=== PATIENT | female | born 1960 | race Caucasian/White ===

== ENCOUNTER 2017-11-05 10:34 | Inpatient (IN) | payer OTHER, BC ==
[~2017-11-05] VITALS: Ht 152.4 cm; Wt 72.6 kg
[2017-11-05 11:14] LABS: BASOPHIL (%) 0.2 % (0-1); EOSINOPHIL (%) 0.5 % (0-5); EOSINOPHIL COUNT 0.1 K/uL (0-0.3); HEMATOCRIT 36.2 % (36.0-46.0); HEMOGLOBIN 12.6 G/DL (11.9-15.5); IMMATURE GRANULOCYTE (%) 0.3 % (0.0-0.7); LYMPHOCYTE (%) 10.9 % (15-42); LYMPHOCYTE COUNT 1.1 K/uL (1.0-2.8); MCH 31.4 PG (29.0-34.0); MCHC 34.8 G/DL (30.0-36.0); MCV 90.3 FL (83-99); MONOCYTE (%) 8.1 % (3-12); MONOCYTE COUNT 0.8 K/uL (0-0.8); NEUTROPHIL COUNT 8.1 K/uL (1.8-6.4); PLATELET COUNT 264 K/uL (156-360); RBC DIS.WIDTH-SD 39.8 % (39-53); RED BLOOD COUNT 4.01 M/uL (3.80-5.20); WHITE BLOOD COUNT 10.1 K/uL (4.1-10.2)
[2017-11-05 11:22] LABS: CHLORIDE 106 mEq/L (99-109); POTASSIUM 3.5 mEq/L (3.7-5.4); SODIUM 140 mEq/L (136-147)
[2017-11-05 11:23] LABS: GLUCOSE 97 mg/dL (70-99)
[2017-11-05 11:27] LABS: CREATININE 0.9 mg/dL (0.6-1.3); GFR ESTIMATE (CALCULATED) > 59 mL/min/
[2017-11-05 11:28] LABS: UREA NITROGEN (BUN) 13 mg/dL (9-23)
[2017-11-05 13:02] LABS: TROP-I INTERPRETATION NEGATIVE; TROPONIN-I < 0.01 ng/mL (0.0-0.30)
[2017-11-05 13:19] LABS: LIPASE 19 U/L (1.0-51.0)
[2017-11-05 14:49] LABS: APPEARANCE CLEAR ((CLEAR)); BILIRUBIN NEGATIVE; BLOOD SMALL; COLOR STRAW ((YELLOW)); GLUCOSE (STRIP) NEGATIVE; KETONES NEGATIVE; LEUKOCYTES TRACE; NITRITE NEGATIVE; PROTEIN (STRIP) NEGATIVE; SPECIFIC GRAVITY 1.025 (1.000-1.030); UROBILINOGEN 0.2 MG/DL (0.2-1.0)
[2017-11-05 14:51] LABS: BACTERIA NONE SEEN /HPF; EPITHELIAL CELLS RARE /HPF; MUCUS NONE SEEN /LPF; RED BLOOD CELLS 0-5 /HPF (0-5); WHITE BLOOD CELLS 0-5 /HPF (0-5)
[2017-11-05] MEDS ORDERED: OXCARBAZEPINE150 MG PO ×2 (15:12→15:13)
[2017-11-05] MEDS ORDERED: DRONABINOL5 MG PO (15:12)
[2017-11-05] MEDS ORDERED: CITALOPRAM HBR20 MG PO (15:12)
[2017-11-05] MEDS ORDERED: ACYCLOVIR800 MG PO (15:13)
[2017-11-05 17:24] VITALS: BP 125/61
[2017-11-05 20:00] VITALS: BP 97/60
[2017-11-06] VITALS: BP 102/62
[2017-11-06 04:39] VITALS: BP 86/50
[2017-11-06 07:48] VITALS: BP 100/56
[2017-11-06 11:08] VITALS: BP 110/59
[2017-11-06 15:47] VITALS: BP 100/53
[2017-11-06 20:00] VITALS: BP 102/60
[2017-11-07 00:33] VITALS: BP 91/51
[2017-11-07 03:48] VITALS: BP 92/50
[2017-11-07 09:26] VITALS: BP 142/70
[2017-11-07 11:35] VITALS: BP 102/55
[2017-11-07 15:15] VITALS: BP 103/59
[2017-11-07 23:19] VITALS: BP 92/51
[2017-11-08] VITALS (8 sets, daily range): BP systolic 85–128; BP diastolic 52–72
[2017-11-08 09:29] LABS: THYROTROPIN (TSH) 0.91 MIU/L (0.4-5.5)
[2017-11-08 12:03] LABS: CHLORIDE 105 MEQ/L (99-109); CREATININE 0.7 MG/DL (0.6-1.3); GFR ESTIMATE (CALCULATED) > 59 mL/min/; GLUCOSE 86 mg/dL (70-99); MAGNESIUM 1.7 mg/dl (1.3-2.7); POTASSIUM 3.7 MEQ/L (3.7-5.4); SODIUM 137 MEQ/L (136-147); UREA NITROGEN (BUN) 13 mg/dL (9-23)
[2017-11-08 19:37] LABS: APPEARANCE CLEAR/COLORLESS; CSF TUBE NUMBER TUBE #3; RED CELL COUNT 0 /MM^3 (0-1); WHITE CELL COUNT 0 /MM^3 (0-5)
[2017-11-08 19:38] LABS: MONONUCLEAR WBC'S ND % (50-90); POLYNUCLEAR WBC'S ND % (0-3)
[2017-11-08 19:39] LABS: CSF EOSINOPHILS ND % (0-25)
[2017-11-08 19:52] LABS: CSF PROTEIN 38 mg/dL (15-45); GLUCOSE, CSF 55 mg/dL (40-80)
[2017-11-09 03:54] VITALS: BP 94/50
[2017-11-09 06:57] LABS: HEMATOCRIT 31.2 % (36.0-46.0); MCH 30.9 PG (29.0-34.0); MCHC 35.3 G/DL (30.0-36.0); MCV 87.6 FL (83-99); PLATELET COUNT 219 K/uL (156-360); RBC DIS.WIDTH-CV 11.8 % (11.8-14.6); RBC DIS.WIDTH-SD 38.3 % (39-53); RED BLOOD COUNT 3.56 M/uL (3.80-5.20); WHITE BLOOD COUNT 4.7 K/uL (4.1-10.2)
[2017-11-09 07:23] LABS: CHLORIDE 105 MEQ/L (99-109); CREATININE 0.7 MG/DL (0.6-1.3); GFR ESTIMATE (CALCULATED) > 59 mL/min/; GLUCOSE 84 mg/dL (70-99); POTASSIUM 3.5 MEQ/L (3.7-5.4); SODIUM 137 MEQ/L (136-147); UREA NITROGEN (BUN) 7 mg/dL (9-23)
[2017-11-09 08:14] VITALS: BP 104/60
[2017-11-09 11:21] VITALS: BP 109/65
[2017-11-09 16:09] VITALS: BP 122/72
[2017-11-09 20:07] VITALS: BP 98/53
[2017-11-10] VITALS (7 sets, daily range): BP systolic 86–106; BP diastolic 52–60
[2017-11-11 03:54] VITALS: BP 96/51
[2017-11-11 07:23] VITALS: BP 100/57
[2017-11-11 11:42] VITALS: BP 18/72
[2017-11-11 19:10] VITALS: BP 107/66
[2017-11-12 00:52] VITALS: BP 100/56
[2017-11-12 04:38] VITALS: BP 100/54
[2017-11-12 08:57] VITALS: BP 110/63
[2017-11-12] MEDS ORDERED: SUMATRIPTAN SUC25 MG PO (12:00)
[2017-11-12] MEDS ORDERED: BUTALB-APAP-CA1 EACH PO (12:00)
[2017-11-12] MEDS ORDERED: TOPIRAMATE25 MG PO (12:00)
== END 2017-11-12 13:03 | disposition home or self-care (01) | DRG 101 ==
LOC: EME 10:34 → EDOF 14:59 → 5WEST 14:59 → CANRESERV 15:05 → ENRESERV 15:05 → 5WEST 17:05
PROVIDERS: Emergency Medicine; Family Medicine; Psychiatry & Neurology Neurology
PROC: 009U3ZX Drainage of Spinal Canal, Percutaneous Approach, Diagnostic (ICD-10-PCS; principal; 2017-11-08)
DX: G40.409 Other generalized epilepsy and epileptic syndromes, not intractable, without status epilepticus (principal); B02.9 Zoster without complications; G35 Multiple sclerosis; R55 Syncope and collapse; R41.82 Altered mental status, unspecified; E87.6 Hypokalemia; K86.9 Disease of pancreas, unspecified; F32.9 Major depressive disorder, single episode, unspecified; G43.909 Migraine, unspecified, not intractable, without status migrainosus; Z86.73 Personal history of transient ischemic attack (TIA), and cerebral infarction without residual deficits; S22.20XD Unspecified fracture of sternum, subsequent encounter for fracture with routine healing; S22.41XD Multiple fractures of ribs, right side, subsequent encounter for fracture with routine healing; V89.2XXD Person injured in unspecified motor-vehicle accident, traffic, subsequent encounter
CPT/HCPCS: 70450; 70551; 71260; 72125; 72129; 72132; 74177; 74183; 80048; 81003; 82607; 82945; 83690; 83735; 84157; 84443; 84484; 85025; 85027; 87070; 87205; 89051; 93005; 95819; 99281; 99285; G0378; J1650; J2270; J2405; J3420; J7030; Q0167